=== PATIENT | male | born 1960 | race Caucasian/White ===

== ENCOUNTER 2020-09-25 19:09 | Emergency (ER) | payer OTHER ==
[~2020-09-25] VITALS: Ht 172.7 cm; Wt 95.6 kg
[2020-09-25] MEDS ORDERED: EZET10TA70 PO (19:35)
--- NOTE | 2020-09-25 19:45 | NUR ---
patient resting in bed in NAD. call silva in reach. declines blanket/sheet. patient denies pain/SOB/CP at this time and patient states "my doctor sent me over here for the other COVID medicine". patient reports receiving Bamlanibimab at PCP's office this morning and patient went home after to take a nap and woke up with a 102F fever. PCP came back to patient's house to reassess him and told him to come to ER
--- NOTE | 2020-09-25 20:47 | NUR ---
patient resting in bed in NAD. call silva in reach. Dr. Guzman to bedside to relay information to patient regarding bamlanivimab recommendations from pharmacist. VS remain stable.
--- NOTE | 2020-09-25 21:46 | NUR ---
discharge instructions reviewed with patient. no further questions. no IV placed during ER visit today. all personal belongings with patient on departure. VS remained stable for discharge on RA. steady gait to lobby. respirations normal and even on departure with no signs of SOB/CP.
[2020-09-25 21:58] VITALS: BP 128/71
== END 2020-09-25 22:00 | disposition home or self-care (01) ==
LOC: ED 21:35
DX: U07.1 COVID-19 (principal); K52.9 Noninfective gastroenteritis and colitis, unspecified; R94.31 Abnormal electrocardiogram [ECG] [EKG]
CPT/HCPCS: 93005; 99283